=== PATIENT | female | born 1990 | race Caucasian/White ===

== ENCOUNTER → 2022-05-19 14:23 | Outpatient (BNVA) | payer OTHER, SELFPAY | PROVIDERS: PCP Physician Assistant; Visit Provider Physician Assistant | DX: S46.811A Strain of other muscles, fascia and tendons at shoulder and upper arm level, right arm, initial encounter (principal); S16.1XXA Strain of muscle, fascia and tendon at neck level, initial encounter; S50.02XA Contusion of left elbow, initial encounter; S83.512A Sprain of anterior cruciate ligament of left knee, initial encounter; W01.198A Fall on same level from slipping, tripping and stumbling with subsequent striking against other object, initial encounter | CPT/HCPCS: 99204 ==

== ENCOUNTER 2023-01-22 13:57 | Outpatient (AMB) | payer BC, SELFPAY ==
--- NOTE | 2023-01-22 14:10 | AM.OFFWIN_ITS ---
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 Patient Tobacco Use Status: Never used Tobacco Allergies amoxicillin [AMOXICILLIN] Allergy (Intermediate, Unverified 12/27/19 19:47) RASH topiramate [From TOPAMAX] Allergy (Intermediate, Unverified 12/27/19 19:47) RASH shellfish derived [SHELLFISH DERIVED] Allergy (Unknown, Unverified 12/27/19 19:47) UNKNOWN Do you need a note to return to daycare/school/sports/work: No HPI HPI Comments History of Present Illness Details This is a 32-year-old female who presents to the office today for sick visit. Patient complaining of right lateral foot pain times 4-5 days. Patient states she stubbed her 4th and 5th toes approximately 5 days ago. She states she has had right foot pain since then. She states the pain is usually brought on when she is barefoot. She does not experience pain when she is wearing shoes. She denies any bruising or swelling. She denies any numbness/weakness/paresthesias of her foot. [facility] Social History Patient Tobacco Use Status: Never used Tobacco Review of Systems Const All systems reviewed & are unremarkable except as noted in HPI and below Reports no additional complaints Eyes Reports no additional complaints ENT Reports no additional complaints Card Reports no additional complaints Resp Reports no additional complaints GI Reports no additional complaints Reports no additional complaints Musc Reports no additional complaints Skin/Breast Reports system reviewed and no additional complaints, except as documented Neuro Reports no additional complaints Psych Reports no additional complaints Endo Reports no additional complaints Wisam/Lymph Reports no additional complaints Aller/Immun Reports no additional complaints Physical Exam Vital Signs: Last Vital Signs Pulse 89 01/22/23 14:22 BP 116/64 01/22/23 14:22 Pulse Ox 99 01/22/23 14:22 Oxygen Delivery Method Room Air 01/22/23 14:22 BMI result Body Mass Index 29.2 Const Other: Vital signs reviewed. Constitutional: Non-toxic appearing. No acute distress. Well-developed and well-nourished. HEENT: Normocephalic and atraumatic. Skin: Warm and dry. No rashes or lesions noted. Neck: Full and painless range of motion. No cervical lymphadenopathy. Cardio: Regular rate. No lower extremity edema. No JVD. Pulmonary: No respiratory distress. No accessory muscle usage. Gastrointestinal: Soft, nontender, and nondistended in all 4 quadrants. Genitourinary: No CVA tenderness. Musculoskeletal: Mild tenderness to palpation of the right 4th and 5th metatarsals. No swelling or ecchymosis of the right foot. Neuro: Alert and oriented x4. Cranial nerves 2-12 grossly intact. No focal deficits appreciated. Psych: Normal mood and affect. Assessment & Plan Assessment & Plan (1) Right foot pain: Code(s): M79.671 - Pain in right foot Plan: This is a 32-year-old female presenting to the office complaining of lateral right foot pain after stubbing her right 4th and 5th toe several days ago. On physical examination, patient has mild tenderness to palpation of the right 4th and 5th metatarsals. Patient very likely has a contusion versus sprain/strain versus fracture. Check x-ray of the right foot. Recommend rest/activity modification, supportive shoes, ice to the area, and elevation of the extremity. Continue with acetaminophen/ibuprofen for pain management as long as patient has no medical contraindications. Patient was advised to follow-up here or proceed to the emergency room if she were to develop persistent/worsening symptoms. Patient verbalizes her understanding and she is in agreement with the plan. Orders: Orders XR foot RT 2V Today M79.671 - Pain in right foot Coding Level of Care Code New Pt Level 3 (03447) Diagnoses Right foot pain M79.671
[2023-01-22 14:22] VITALS: BP 116/64; PULSE 89; O2SAT 99; BMI 29.2
== END 2023-01-22 14:58 | disposition home or self-care (01) ==
PROVIDERS: PCP Physician Assistant; Visit Provider Physician Assistant Medical
DX: M79.671 Pain in right foot (principal)
CPT/HCPCS: 99203

== ENCOUNTER 2023-01-22 14:36 | Outpatient (REF) | payer BC, OTHER, SELFPAY ==
--- NOTE | ~2023-01-22 | XR_ITS ---
EXAMINATION: XR FOOT, RIGHT CLINICAL INFORMATION: Pain COMPARISON: None available. TECHNIQUE: AP, lateral, and oblique views of the right foot. FINDINGS: The bones and soft tissues are normal. No fracture. Alignment is anatomic. Joint spaces are maintained. XR/XR foot RT 2V IMPRESSION: Unremarkable right foot.
== END 2023-01-22 14:37 | disposition home or self-care (01) ==
LOC: HO.HMGCX 14:36
PROVIDERS: Visit Provider Physician Assistant Medical
DX: M79.671 Pain in right foot (principal)
CPT/HCPCS: 73620